=== PATIENT | male | born 1995 | race Two or more races ===

== ENCOUNTER 2017-01-09 22:08 | Emergency (ER) | payer SELFPAY ==
[2017-01-09 22:14] VITALS: BP 145/71
--- NOTE | 2017-01-10 00:36 | ED ---
Upper Extremity Pain - HPI Summary HPI Summary: Patient presents to the ED with CC of right dorsum hand pain. 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 He notes to immediate pain, but no swelling or bruising. He is able to extend and flex his fingers without problems. He denies numbness or tingling or previous injury to the area. He has never injured the hand before. Pain is worse while extending his fingers, and improves with flexing of the fingers. Denies other injuries. - History of Current Complaint Chief Complaint: EDExtremityUpper Stated Complaint: RT HAND INJURY Time Seen by Provider: 01/09/17 22:32 Hx Obtained From: Patient Mechanism Of Injury: Blunt Trauma Onset/Duration: Started Minutes Ago Timing: Constant Severity Initially: Mild Severity Currently: Mild Pain Location: Hand Character: Aching Aggravating Factor(s): Extension - fingers Alleviating Factor(s): Rest, Ice Associated Signs & Symptoms: Positive: Negative Related History: Occupational Injury, Dominant Hand Left - Risk Factors Non-Orthopedic Risk Factor: Negative DVT Risk Factors: Negative Septic Arthritis Risk Factor: Negative Compartment Syndrome Risk Factors: Pain - Allergies/Home Medications Allergies/Adverse Reactions: Allergies Allergy/AdvReac Type Severity Reaction Status Date / Time No Known Allergies Allergy Verified 01/09/17 23:42 PMH/Surg Hx/FS Hx/Imm Hx Previously Healthy: Yes Infectious Disease History: No Infectious Disease History: Denies: Traveled Outside the in Last 30 Days - Social History Occupation: Employed Full-time Lives: With Family Alcohol Use: None Hx Substance Use: No Substance Use Type: Reports: None Hx Tobacco Use: No Smoking Status (MU): Never Smoked Tobacco Do You Chew or Dip Tobacco: No Review of Systems Constitutional: Negative Eyes: Negative Cardiovascular: Negative Respiratory: Negative Genitourinary: Negative Positive: no symptoms reported, see HPI Positive: Arthralgia - pain over dorsum of hand Skin: Negative Neurological: Negative All Other Systems Reviewed And Are Negative: Yes Physical Exam Triage Information Reviewed: Yes Vital Signs On Initial Exam: Initial Vitals Temp Pulse Resp BP Pulse Ox 98.2 F 83 18 145/71 99 01/09/17 22:10 01/09/17 22:10 01/09/17 22:10 01/09/17 22:10 04/25/17 22:10 Vital Signs Reviewed: Yes Appearance: Positive: Well-Appearing, No Pain Distress, Well-Nourished Skin: Positive: Warm, Skin Color Reflects Adequate Perfusion Head/Face: Positive: Normal Head/Face Inspection Eyes: Positive: EOMI, MIRIAM, Conjunctiva Clear Neck: Positive: Supple, Nontender, No Lymphadenopathy Respiratory/Lung Sounds: Positive: Clear to Auscultation, Breath Sounds Present Cardiovascular: Positive: Normal, RRR Musculoskeletal: Positive: Pain @ - on palpation over dorsum of the hand Neurological: Positive: Normal, Sensory/Motor Intact, Speech Normal Psychiatric: Positive: Normal AVPU Assessment: Alert Diagnostics - Vital Signs Vital Signs Temp Pulse Resp BP Pulse Ox 01/09/17 23:21 98.2 F 83 18 145/71 99 01/09/17 22:10 98.2 F 83 18 145/71 99 - Laboratory Lab Statement: Any lab studies that have been ordered have been reviewed, and results considered in the medical decision making process. Course/Dx - Course Course Of Treatment: xray negative for fx. Reading by PURNMIA Garcia and Dr Ogden. Will encourage to return to ED or follow up with PCP if symptoms persist. lindsey wrapped. note given for school. - Diagnoses Differential Diagnosis/HQI/PQRI: Positive: Contusion, Fracture (Closed), Strain , Sprain Provider Diagnoses: Contusion, hand Discharge - Discharge Plan Condition: Stable Disposition: HOME Patient Education Materials: Contusion in Adults (ED) Forms: *School Release [facility] - Additional Instructions: Follow up with your PCP If symptoms become worse, come back to ED or go see your PCP. Ibuprofen 600mg three times daily with meals for pain. Keep hand wrapped for comfort. Ice and rest hand.
--- NOTE | 2017-01-10 07:28 | RAD ---
INDICATION: Trauma to dorsum of hand COMPARISON: None TECHNIQUE: AP, lateral, and oblique views were obtained. FINDINGS: The bony structures, joint spaces, and soft tissues are normal for age. IMPRESSION: NEGATIVE EXAMINATION.
== END 2017-01-10 00:21 | disposition home or self-care (01) ==
LOC: ED 22:08
DX: S60.221A Contusion of right hand, initial encounter (principal); W20.8XXA Other cause of strike by thrown, projected or falling object, initial encounter; Y92.89 Other specified places as the place of occurrence of the external cause
CPT/HCPCS: 99281

== ENCOUNTER 2017-09-26 16:05 | Emergency (ER) | payer OTHER ==
--- NOTE | 2017-09-26 17:08 | UC ---
Respiratory Complaint HPI - HPI Summary HPI Summary: 2 DAYS OF COUGH, FATIGUE, CANO, ST AND EAR PAIN. NO FEVER, N/V/D. NO MYALGIAS. IS ASTHMATIC AND REPORTS HE HAS FELT INTERMITTENTLY WHEEZY. - History of Current Complaint Chief Complaint: UCRespiratory Stated Complaint: cough, and headache Time Seen by Provider: 09/26/17 17:01 Hx Obtained From: Patient Onset/Duration: Gradual Onset, Lasting Days, Still Present Timing: Constant Severity Initially: Moderate Severity Currently: Moderate Pain Intensity: 7 Pain Scale Used: 0-10 Numeric Character: Cough: Nonproductive Aggravating Factors: Nothing Alleviating Factors: Nothing Associated Signs And Symptoms: Positive: Wheezing, URI, Sinus Discomfort. Negative: Dyspnea, Fever, Chills - Allergies/Home Medications Allergies/Adverse Reactions: Allergies Allergy/AdvReac Type Severity Reaction Status Date / Time No Known Allergies Allergy Verified 09/26/17 16:20 PMH/Surg Hx/FS Hx/Imm Hx Respiratory History: Asthma - Surgical History Surgical History: None - Family History Known Family History: Negative: Hypertension - Social History Alcohol Use: None Substance Use Type: None, Marijuana Smoking Status (MU): Never Smoked Tobacco Review of Systems Constitutional: Fatigue ENT: Sore Throat, Ear Ache Respiratory: Cough Cardiovascular: Negative Gastrointestinal: Negative All Other Systems Reviewed And Are Negative: Yes Physical Exam Triage Information Reviewed: Yes Appearance: Well-Appearing, No Pain Distress, Well-Nourished Vital Signs: Initial Vital Signs Temp 99.7 F 09/26/17 16:17 Pulse 86 09/26/17 16:17 Resp 15 09/26/17 16:17 Pulse Ox 99 09/26/17 16:17 Vital Signs Reviewed: Yes Eyes: Positive: Conjunctiva Clear ENT: Positive: Hearing grossly normal, Pharynx normal, Other - RIGHT TM NORMAL. LEFT TM DULL, ERYTHEMATOUS. RIGHT TONSIL STONE Neck: Positive: Supple, Nontender, No Lymphadenopathy Respiratory Exam: Normal Cardiovascular Exam: Normal Abdomen Description: Positive: Soft Musculoskeletal: Positive: No Edema Neurological: Positive: Alert Psychological: Positive: Age Appropriate Behavior Skin: Negative: rashes UC Diagnostic Evaluation - Laboratory O2 Sat by Pulse Oximetry: 99 Respiratory Course/Dx - Course Course Of Treatment: RIGHT TONSIL STONE REMOVED WITHOUT DIFFICULTY USING COTTON SWAB. - Differential Dx/Diagnosis Provider Diagnoses: 1. LEFT AOM. 2. ACUTE URI Discharge - Discharge Plan Condition: Stable Disposition: HOME Prescriptions: Amoxicillin PO (*) [Amoxicillin 500 MG CAP*] 1,000 mg PO Q12H #28 cap predniSONE TAB* [Deltasone TAB*] 40 mg PO DAILY #10 tab Patient Education Materials: Otitis Media (ED), Upper Respiratory Infection (ED ) [facility] - If Needed Additional Instructions: GIVEN YOUR FREQUENCY OF EAR INFECTIONS CONSIDER EVALUATION BY ENT. [facility] [place] [address] [facility] [phone]
== END 2017-09-26 17:35 | disposition home or self-care (01) ==
LOC: UCEAST 16:05
DX: J06.9 Acute upper respiratory infection, unspecified (principal); H66.92 Otitis media, unspecified, left ear; J45.909 Unspecified asthma, uncomplicated
CPT/HCPCS: 99212; G0463